=== PATIENT | female | born 1970 | race Caucasian/White ===

== ENCOUNTER 2023-07-30 08:33 | Emergency (ER) | payer BC, SELFPAY ==
[2023-07-30 08:34] VITALS: BMI 28.9
[2023-07-30 08:44] VITALS: BP 158/92
--- NOTE | 2023-07-30 09:18 | ED.GENMED ---
History of Present Illness
General
Chief Complaint: Chest Pain
Source: patient
Exam Limitations: none
Time Seen by Provider: 07/30/23 08:59
Travel History
Have you had any contact with someone who has COVID-19?: No
Do you have any symptoms of coronavirus? Fever > 100 degrees, chills, cough, shortness of breath, sore throat, loss of taste or smell, muscle aches, or headache?: No
History of Present Illness
History of Present Illness:
53 year old female with history of HTN on HCTZ presents with onset of chest pain, racing heart and lightheadedness. She had some pain to the left side of her chest this morning as well. No recent travel or surgery. No leg swelling or calf pain.
She took an additional hydrochlorothiazide this morning and since then her symptoms have improved. No other complaints at this time.
Phy Exam
Physical Exam
Physical Exam:
General: Well-appearing female no acute respiratory distress
HEENT: Normocephalic atraumatic
Heart: Regular rate and rhythm no murmurs
Lungs: Clear to auscultation bilaterally no wheezing
Extremities: No cyanosis or edema
Scores
Heart Score for Chest Pain Patients
STEMI patient?: No
History: Slightly or Non-Suspicious
ECG: Normal
Age: >45 - <65 years
Risk Factors: 1 or 2 Risk Factors
Troponin: </= Normal Limit
Heart Score for Chest Pain Patients: 2
Heart Score Risk: 2.5% MACE over next 6 weeks
Course
Orders/Labs/Results
Orders:
Orders
07/30/23 08:39
ECG [Electrocardiogram (*1)] Urgent
Reason for Study: Chest Pain
EKG- Treatment ONCE
07/30/23 09:22
Complete Blood Count/With Diff Urgent
Comprehensive Metabolic Panel Urgent
D-Dimer Urgent
TSH Reflex To Free T4 Urgent
Troponin I Urgent
07/30/23 10:05
CR Chest - 2 Views Urgent
Comment:
Reason For Exam: chest pain
Abnormal Lab Results
07/30/23
09:22
Absolute Neuts (auto) 6.8 H 10^3/uL
(1.4-6.5)
Absolute Monos (auto) 0.7 H 10^3/uL
(0.1-0.6)
Neutrophils % 76.1 H %
(42.2-75.2)
Lymphocytes % 14.8 L %
(20.5-51.1)
BUN 21 H mg/dl
(7-17)
07/30/23 09:22
07/30/23 09:22
Vital Signs
Initial and Last Documented VS:
Initial Vital Signs
Temp Pulse Resp BP Pulse Ox
98.3 F 72 18 158/92 100
07/30/23 08:44 07/30/23 08:44 07/30/23 08:44 07/30/23 08:44 07/30/23 08:44
Last Documented Vital Signs
Temp Pulse Resp BP Pulse Ox
98.3 F 66 16 115/77 95
07/30/23 08:44 07/30/23 10:30 07/30/23 10:30 07/30/23 10:00 07/30/23 10:30
MDM/Problems Addressed
Differential Diagnosis Includes:
Chest pain with palpitation. Consider ACS versus arrhythmia versus PE. Symptoms are improved but not resolved. Will check EKG labs and D-dimer. Imaging pending D-dimer result.
EKG shows sinus rhythm with a rate of 65 no ischemic changes
*Critical Care Note
Total Time (30-74mins, 75-104mins- exclusive of procedures): Not Applicable
Update Note
Update Note:
Workup here essentially unremarkable. Chest x-ray clear. D-dimer within normal limits troponin undetectable. Do not suspect ACS or PE or dissection given resolution of symptoms. Patient had palpitations earlier. Will recommend follow-up with
either family doctor or billing services manager for Holter monitor
ED Attending Note
-
Portions of this chart may have been created with voice recognition software.� Occasional wrong word or��sound alike� substitutions may have occurred due to the inherent limitations of voice recognition software.
Discharge Plan
Departure
Patient Disposition: Home (Routine Discharge)
Date of Disposition: 07/30/23
Time of Disposition: 11:07
Patient with high blood pressure during this ER visit?: No
Discharge Problem:
Palpitations
Prescriptions:
No Action
cyanocobalamin (vitamin B-12) 1,000 mcg Tablet
1,000 mcg PO DAILY
ibuprofen [Advil] 200 mg Tablet
400 mg PO BIDPRN PRN (Reason: mild pain)
Fruit and Vegetable Daily 5-6-150 mg Capsule
1 cap PO DAILY
hydrochlorothiazide 12.5 mg Tablet
12.5 mg PO HS
magnesium oxide 400 mg magnesium Tablet
400 mg PO DAILY
vitamin D3-vitamin K2 1,250-200 mcg Capsule
1 cap PO DAILY
Nutrafol
1 cap PO DAILY
Referrals:
Oni Martínez MD [Active] -
Lisa Osorio MD [Family Provider] -
Activity Restrictions/Additional Instructions:
Continue current medications. Please consider following up with family doctor and/or billing services manager for further evaluation of possible Holter monitoring. Return for worsening symptoms otherwise
Interventions
Interventions:
*Risk Screen - Suicide Last Done: 07/30/23 09:28
*General Assessment Last Done: 07/30/23 09:28
*Neglect/Abuse Screening Last Done: 07/30/23 09:28
ED- Fall Risk Assessment Last Done: 07/30/23 09:28
*ED COVID-19 Vaccine History Last Done: 07/30/23 08:45
ED- Cardiac Assessment Last Done: 07/30/23 09:28
Discharge Date and Time
Print Language: BELARUSIAN
[2023-07-30 09:26] VITALS: BP 136/80
[2023-07-30 09:34] LABS: % Basophils 0.3 % (0-2); % Immature Granulocytes 0.3 % (0-0.5); % Lymphocytes 14.8 % (20.5-51.1); % Monocytes 7.5 % (1.7-9.3); % Neutrophils 76.1 % (42.2-75.2); Absolute Eosinophils 0.1 10^3/uL (0-0.7); Absolute Lymphocytes 1.3 10^3/uL (1.2-3.4); Absolute Monocytes 0.7 10^3/uL (0.1-0.6); Absolute Neutrophils 6.8 10^3/uL (1.4-6.5); Hemoglobin 15.6 g/dL (12.0-16.0); Mean Corp Hgb Conc. 35.5 g/dL (33.0-37.0); Mean Corpuscular Hgb 29.2 pg (27.0-31.0); Mean Corpuscular Volume 82.4 fL (81.0-99.0); Mean Platelet Volume 8.8 fL (7.4-10.4); Nucleated Red Blood Cells % 0 %; Platelet Count 220 10^3/uL (130-400); Red Blood Cell Count 5.34 10^6/uL (4.20-5.40); Red Cell Dist. Width 13.2 % (11.5-14.5); White Blood Cell Count 8.9 10^3/uL (4.8-10.8)
[2023-07-30 09:47] LABS: ALT (SGPT) 26 U/L (0-35); AST (SGOT) 26 U/L (14-36); Albumin 4.7 g/dl (3.5-5.0); Alkaline Phosphatase 73 U/L (38-126); Blood Urea Nitrogen 21 mg/dl (7-17); Calcium 10.2 mg/dl (8.4-10.2); Carbon Dioxide 27 mmol/L (22-30); Chloride 100 mmol/L (98-107); Estimated Creatinine Clearance 85 ml/min; Glucose 93 mg/dl (70-99); Sodium 138 mmol/L (135-145); Total Bilirubin 0.6 mg/dl (0.2-1.3); Total Protein 7.5 g/dl (6.3-8.2); eGFR > 60.00
[2023-07-30 09:58] LABS: Troponin I < 0.012 ng/ml
[2023-07-30 10:00] VITALS: BP 115/77
[2023-07-30 10:22] LABS: TSH Reflex To Free T4 2.83 uIU/ml (0.47-4.68)
== END 2023-07-30 11:56 | disposition home or self-care (01) ==
LOC: EMR 08:33
PROVIDERS: Physician Assistant; EMERGENCY PHYSICIAN Emergency Medicine; FAMILY PHYSICIAN Family Medicine
DX: R00.2 Palpitations (principal)
CPT/HCPCS: 99283; 71046; 80053; 84443; 84484; 85025; 85379; 93005

== ENCOUNTER → 2024-04-12 14:58 | Outpatient (REF) | payer BC, SELFPAY | LOC: HWRAD 14:58 | PROVIDERS: ATTENDING PHYSICIAN Nurse Practitioner Family | DX: R94.6 Abnormal results of thyroid function studies (principal) | CPT/HCPCS: 76536 ==